=== PATIENT | female | born 1965 | race Caucasian/White ===

== ENCOUNTER 2022-07-02 02:24 | Observation (INO) | payer OTHER, SELFPAY ==
[2022-07-02] VITALS (16 sets, daily range): BP systolic 83–143; BP diastolic 57–94; PULSE 67–106; RESP 10–23; TEMP 36.5–36.9; O2SAT 91–100
--- NOTE | ~2022-07-02 | CT_ITS ---
EXAMINATION: CT abdomen pelvis w con DATE: 07/02/2022 06:28 INDICATION: Right flank pain. TECHNIQUE: Computed tomography (CT) of the abdomen and pelvis was performed with 100 mL Omnipaque 350 intravenous contrast. Automated exposure control and iterative reconstruction technique were employe d. The dose-length product was 365.59 mGy-cm. COMPARISON: None. FINDINGS: The visualized portions of the lung bases demonstrate mild atelectasis. No pleural effusion . The heart size is normal. No pericardial effusion. The liver demonstrates focal steatosis adjacent to ligamentum teres. There is a 6 mm cyst in the liver. The gallbladder is normal in size and contain s a gallstone. The spleen, pancreas, adrenal glands, and left kidney are normal. There are cysts in r ight kidney measuring up to 3.1 cm. There is a 3 mm stone in right kidney. There is mild right hydron ephrosis and hydroureter. There is a 5 mm stone in distal right ureter. There is a 2.1 cm subserosal uterine fibroid. There is diverticulosis of the colon without evidence of diverticulitis. The appendi x is normal. There are no dilated loops of bowel. There are no pathologically enlarged lymph nodes. T here is no free intraperitoneal fluid. There is an umbilical hernia containing fat. There is moderate lumbar spondylosis. IMPRESSION: 1. 5 mm stone in distal right ureter with mild right hydronephrosis and hydroureter. 2. 3 mm nonobstructing right kidney stone. Reviewed, dictated and finalized at [facility] IMPRESSION: 1. 5 mm stone in distal right ureter with mild right hydronephrosis and hydrour eter. 2. 3 mm nonobstructing right kidney stone.
--- NOTE | ~2022-07-02 | XR_ITS ---
XR fluoroscopy no charge DATE: 07/02/2022 12:57 INDICATION: Right ureteral stone extraction TECHNIQUE: Multiple spot C-arm images during right retrograde pyelogram procedure 10.8 seconds fluoroscopy time [id number] [id number] COMPARISON: 07/02/2022 CT abdomen pelvis FINDINGS: A cystoscope is noted with guidewire placed up to the L5 level in the right ureter. There i s moderate right hydroureteronephrosis with blunting of the calyces throughout the right kidney. IMPRESSION: Moderate right hydroureteronephrosis Please refer to urology procedure report Reviewed, dictated and finalized at [facility] Reviewed, dictated and finalized at [facility]. [employer]
--- NOTE | 2022-07-02 03:01 | ED.ABDPAIN ---
HPI - Abdominal Pain General Chief Complaint: Abdominal Pain Stated Complaint: Abd pain, LRQ to back Time Seen by Provider: 07/02/22 02:33 History of Present Illness HPI narrative: This is a 57-year-old female with past medical history of kidney stones, presenting the emergency department complaining of severe abdominal pain for the past day. She describes the pain as dull and cramping, severe, radiating towards the pelvis. This is associated with nausea and vomiting. She states she has felt the pain like this before and found to have kidney stones Related Data Home Medications Medication Instructions Recorded Confirmed albuterol sulfate 90 mcg/actuation 1 puff inhalation QID PRN Wheezing 08/28/19 08/28/19 aerosol inhaler cetirizine 10 mg capsule 10 mg PO DAILY 08/28/19 08/28/19 famotidine 20 mg tablet 20 mg PO DAILY 08/28/19 08/28/19 thyroid (pork) 48.75 mg tablet 48.75 mg PO DAILY 08/28/19 08/28/19 (Nature-Throid) venlafaxine 75 mg tablet 75 mg PO BID 08/28/19 08/28/19 Allergies Allergy/AdvReac Type Severity Reaction Status Date / Time No Known Allergies Allergy Verified 08/28/19 16:14 Review of Systems Review of Systems: CONSTITUTIONAL: Denies fever, chills, or sweats. EYES: Denies visual changes, redness, or discharge. ENT: Denies rhinorrhea, congestion, sore throat, or otalgia. CARDIOVASCULAR: Denies chest pain, palpitations, or edema. RESPIRATORY: Denies cough or dyspnea. GASTROINTESTINAL: Abdominal pain, nausea, vomiting denies diarrhea. GENITOURINARY: Denies dysuria or hematuria. SKIN: Denies rash or itching. MUSCULOSKELETAL: Denies back pain, joint pain, or myalgia. NEUROLOGIC: Denies headache, numbness, dizziness, or weakness. PSYCHIATRIC: Denies anxiety or depression. FORMERLY [facility], 1928–1983 Past Medical History Medical History (Updated 07/02/22 @ 08:02 by Demar Bartholomew MD) Gestational diabetes Rema's disease Medullary sponge kidney Surgical History Surgical History H/O lateral meniscus repair of left knee Social History Social History Smoking status: Never smoker Alcohol intake: current Alcohol use details: Socially Substance use: never Gender identity (if verbalized by the patient): Female Exam Narrative: GENERAL: Well-developed, well-nourished, appears diaphoretic, in moderate distress due to pain HEAD: Normocephalic, atraumatic. EYES: PERRLA and EOMI. ENT: Nares clear, no rhinorrhea or epistaxis. Mucous membranes moist. Oropharynx without tonsillar hypertrophy exudate or other lesions. NECK: Supple. No adenopathy or masses. No carotid bruits or JVD CHEST: Clear to auscultation. No respiratory distress. No wheezes rales or rhonchi HEART: Regular rate and rhythm. No murmur heard. Normal peripheral pulses. ABDOMEN: Soft, diffusely tender to palpation, greater in the right lower quadrant and suprapubic region, nondistended, normal active bowel sounds. Right CVA tenderness to palpation EXTREMITIES: Normal range of motion. No edema. SKIN: Warm, dry, no rash. NEURO: No focal deficits. Alert and oriented x3. PSYCH: Normal mood and affect. Course Course Emergency Course: 07:10 - CT shows a right-sided 5 mm stone with hydronephrosis. Patient has been unable to provide a urine sample and states her pain is some not controlled. Will discuss patient with urology and hospitalist and admit for pain control. 07:50 - UA not concerning for UTI. Paged urology with out answer. Discussed patient with hospitalist, Dr. Lazar who accepts admission for pain control 08:45 - Discussed patient with urology team who will evaluate the patient. Vital Signs Vital signs: Vital Signs Temperature 98.1 F 07/02/22 03:04 Pulse Rate 69 07/02/22 03:04 Respiratory Rate 18 07/02/22 03:04 Blood Pressure 142/77 H 07/02/22 03:04 Pulse Oximetry 99 07/02/22 03:04 Oxygen Delivery R
[2022-07-02] MEDS: PROCHLORPERAZINE EDISYLATE 10 MG/2 ML VIAL IV PUSH (03:38)
[2022-07-02] MEDS: MORPHINE SULFATE (*CRX) 4 MG/ML INJ IV PUSH (03:38)
[2022-07-02] MEDS: SODIUM CHLORIDE 0.9% IV 1,000 ML 999 ML IV CONT ×2 (03:39→09:27)
[2022-07-02 03:44] LABS: Basophils Percent Auto 0.3 % (0.2-1.2); Eosinophils Percent Auto 0.3 % (0-4.4); Hematocrit 39.8 % (37.0-47.0); Hemoglobin 13.6 g/dL (12.0-15.0); Immature Granulocyte Absolute 0.06 K/mm3 (0.00-0.031); Immature Granulocyte Percent A 0.5 % (0-0.5); Lymphocytes Absolute Auto 1.33 K/mm3 (0.9-3.2); Lymphocytes Percent Auto 11.1 % (18.3-44.2); Mean Corpuscular HGB Conc 34.2 g/dl (32-36); Mean Corpuscular Hemoglobin 29.8 pg (26-34); Mean Corpuscular Volume 87.3 fl (80-100); Mean Platelet Volume 11.1 fl (7.4-10.4); Monocytes Absolute Auto 0.6 K/mm3 (0.1-0.6); Monocytes Percent Auto 4.9 % (2.6-8.5); Neutrophils Absolute Auto 9.9 K/mm3 (1.3-6.7); Neutrophils Percent Auto 82.9 % (45.5-73.1); Platelet Count Result 226 k/mm3 (150-375); Red Blood Count 4.56 M/mm3 (4.2-5.4); Red Cell Distribution Width 11.9 % (11.5-14.5)
[2022-07-02 03:56] LABS: Lactic Acid Reflex 2.7 mmol/L (0.7-2.0)
[2022-07-02 03:56] LABS: Lipase 189 U/L (23-300)
[2022-07-02 05:06] LABS: Alanine Aminotransferase 21 U/L (6-35); Albumin Level 4.3 g/dL (3.5-5.1); Alkaline Phosphatase 91 U/L (38-126); Anion Gap 11 mmol/L (8-16); Aspartate Amino Transferase 27 U/L (14-36); Bilirubin,Total 0.3 mg/dL (0.2-1.3); Blood Urea Nitrogen 11 mg/dL (7-17); Calcium 8.6 mg/dL (8.4-10.2); Carbon Dioxide 24 mmol/L (22-30); Chloride 105 mmol/L (98-107); Estimated CRCL calculation 127 ml/min; Estimated Glomerular Filt Rate > 60; Glucose 194 mg/dL (65-110); Potassium 3.7 mmol/L (3.4-5.0); Sodium 140 mmol/L (137-145)
[2022-07-02 06:39] LABS: Reflex Lactic Acid Yes or No Add Lactic
[2022-07-02 07:14] LABS: Add Urine Microscopic? YES; Appearance Urine Cloudy (Clear); Bilirubin Urine 1+ (Negative); Blood Urine 3+ (Negative); Color Urine Brown (Yellow); Glucose Urine UA Trace mg/dL (Negative); Ketones Urine Negative (Negative); Leukocyte Esterase Ur Negative LEU/UL (Negative); Nitrate Urine Negative (Negative); Protein Urine Trace mg/dL (Negative); Specific Grav Ur >= 1.030 (1.001-1.035); Urobilinogen Urine 0.2 mg/dL (<2.0); pH Urine 5.5 (5.0-9.0)
[2022-07-02 07:29] LABS: Amorphous Sediment Urine Moderate; Calcium Oxalate Crystals Urine Present /hpf; Mucus Urine Heavy /lpf; RBC Urine >75 /hpf (0-2); Squamous Epithelial Cell Urine Rare /hpf (Few); WBC Urine 21-30 /hpf
[2022-07-02 07:34] LABS: Lactic Acid 3.1 mmol/L (0.7-2.0)
[2022-07-02] MEDS: HYDROmorphone HCL INJ (*CRX) 1 MG/ML SYR IM (09:26)
[2022-07-02] MEDS: KETOROLAC 30 MG/ML VIAL (*BKC) IV PUSH (09:27)
[2022-07-02] MEDS: TAMSULOSIN HCL 0.4 MG CAPSULE PO (09:32)
--- NOTE | 2022-07-02 09:45 | ADMGEN ---
This patient, Opal Ngo, was admitted to Medical Room 261-01. Patient/family oriented to hospital policies and general routines including ID bracelet, bed and alarms, visiting hours, pain management, procedures, bathroom and other care routines, personal items, smoking policy, room service/diet, and visiting hours. Information on how to activate the Rapid Response Team has been discussed. Patient/Family are encouraged to report perceived risks to care and to ask questions if they do not understand what they are told or what they should do.
--- NOTE | 2022-07-02 11:14 | WPDANESEPPF ---
Anes - Initial Pre Proc Eval Procedure: Operation Date: 07/02/22 15:00 Proposed Procedures p Cystoscopy, Right Retrograde Pyelogram, Possible Stone Extraction, Possible Stent Placement; Possible Holmium Laser(Right) - Garrett Marx MD Date/Time: 07/02/22 11:14 Surgeon: Dianne Ramos PA-C Pre Op Diagnosis: Nephrolithiasis Patient Data Age: 57 Gender: F Height: 1.65 m Weight: 143 kg Last Vital Signs Temp 36.6 C 07/02/22 09:53 Pulse 73 07/02/22 09:53 Resp 14 07/02/22 09:53 BP 118/64 07/02/22 09:53 Pulse Ox 95 07/02/22 09:53 O2 Del Method Room Air 07/02/22 03:16 Allergies Allergy/AdvReac Type Severity Reaction Status Date / Time acetaminophen [From Tylenol] Allergy Other Verified 07/02/22 10:11 Home Medications Medication Instructions Recorded Confirmed Type albuterol sulfate 90 mcg/actuation 1 puff inhalation QID PRN Wheezing 08/28/19 07/02/22 History aerosol inhaler cetirizine 10 mg capsule 10 mg PO DAILY 08/28/19 07/02/22 History famotidine 20 mg tablet 20 mg PO DAILY 08/28/19 07/02/22 History azelastine 137 mcg (0.1 %) nasal 2 spray intranasal BID PRN Allergy 07/02/22 07/02/22 History spray aerosol Symptoms chlorpheniramine 4 1 tablet PO DAILY 07/02/22 07/02/22 History mg-phenylephrine 10 mg tablet (Cold and Allergy) ergocalciferol (vitamin D2) 1,250 1,250 mcg PO WEEKLY 07/02/22 07/02/22 History mcg (50,000 unit) capsule montelukast 10 mg tablet 10 mg PO DAILY 07/02/22 07/02/22 History thyroid (pork) 60 mg tablet 60 mg PO DAILY 07/02/22 07/02/22 History (Transfer Thyroid) Laboratory Tests 07/02/22 07/02/22 07/02/22 03:25 03:25 03:26 WBC 12.0 K/mm3 H K/mm3 (4.5-10.0) RBC 4.56 M/mm3 M/mm3 (4.2-5.4) Hgb 13.6 g/dL g/dL (12.0-15.0) Hct 39.8 % % (37.0-47.0) MCV 87.3 fl fl (80-100) MCH 29.8 pg pg (26-34) MCHC 34.2 g/dl g/dl (32-36) RDW 11.9 % % (11.5-14.5) Plt Count 226 k/mm3 k/mm3 (150-375) MPV 11.1 fl H fl (7.4-10.4) Immature Gran % (Auto) 0.5 % % (0-0.5) Neut % (Auto) 82.9 % H % (45.5-73.1) Lymph % (Auto) 11.1 % L % (18.3-44.2) [place] % (Auto) 4.9 % % (2.6-8.5) Eos % (Auto) 0.3 % % (0-4.4) Baso % (Auto) 0.3 % % (0.2-1.2) Lymph # (Auto) 1.33 K/mm3 K/mm3 (0.9-3.2) [place] # (Auto) 0.6 K/mm3 K/mm3 (0.1-0.6) Eos # (Auto) 0.0 K/mm3 K/mm3 (0-0.3) Baso # (Auto) 0.0 K/mm3 K/mm3 (0.0-0.1) Abs Immat Gran (auto) 0.06 K/mm3 H K/mm3 (0.00-0.031) Absolute Neuts (auto) 9.9 K/mm3 H K/mm3 (1.3-6.7) Absolute Nucleated RBC 0.0 K/mm3 K/mm3 (0.0-0.012) Nucleated RBC % 0.0 % % (0.0-0.2) Sodium Cancelled Potassium Cancelled Chloride Cancelled Carbon Dioxide Cancelled Anion Gap Cancelled BUN Cancelled Creatinine Cancelled Estim Creat Clear Calc Cancelled Estimated GFR Cancelled Glucose Cancelled Lactic Acid 2.7 mmol/L H mmol/L (0.7-2.0) Calcium Cancelled Total Bilirubin Cancelled AST Cancelled ALT Cancelled Alkaline Phosphatase Cancelled Total Protein Cancelled Albumin Cancelled Lipase Cancelled Urine Color Urine Appearance Urine pH Ur Specific [place] Urine Protein Urine Glucose (UA) Urine Ketones Ur Blood (Man) Urine Nitrate Urine Bilirubin Urine Urobilinogen Leukocyte Esterase Rfl Urine RBC Urine WBC Ur Squamous Epith Cells Calcium Oxalate Crystal Amorphous Sedimen
--- NOTE | 2022-07-02 11:25 | WPDURCON ---
Assessment and Plan Assessment and plan (1) Nephrolithiasis: Code(s): N20.0 - Calculus of kidney Status: Acute Assessment and Plan: Plan to go to the OR with Dr. Marx: Cystoscopy, right ureteroscopy with stone extraction, right stent placement, right retrograde pyelogram, possible holmium laser. Keep NPO. Urology Consult Note HPI Date Seen: 07/02/22 Time Seen: 11:25 Requesting Physician: Dianne Ramos PA-C Primary Care Provider: UNKNOWN,DOCTOR Consult Narrative Reason for consult: Right Ureteral Stone Narrative: Opal Ngo is a 57 year old female who presented to the ER this morning for acute onset of low back pain that radiates to the RLQ accompanied by nausea and vomiting. She denies dysuria, hematuria, frequency or urgency to urinate. She had a CT scan in the ER which shows a 5mm right distal ureteral stone with mild right hydronephrosis, with a 3mm non obstructive right kidney stone. UA is not suggestive of a UTI, urine culture is pending. Creatinine is 0.60, WBC 12.0 and she is afebrile. She has a history of kidney stones but passed them spontaneously in the past. She has never seen a urologist or had surgery for her stones in the past. Review of Systems Cardiovascular: Cardiovascular: Denies chest pain Respiratory: Respiratory: Reports no additional respiratory complaints Gastrointestinal: Gastrointestinal: Reports abdominal pain, Reports nausea and Reports vomiting Genitourinary: Genitourinary: Denies hematuria, Denies nocturia, Denies dysuria, Denies pelvic pain, Denies flank pain, Denies urinary incontinence, Denies urinary hesitancy and Denies urinary urgency [facility] Past Medical History Medical History Asthma Fibromyalgia GERD (gastroesophageal reflux disease) Gestational diabetes Rema's disease Medullary sponge kidney Ulcer Surgical History Surgical History H/O lateral meniscus repair of left knee Social History Social History Smoking status: Never smoker Alcohol intake: current Alcohol use details: Socially Substance use: never Lack of Transportation: No Lack of Food: Never True Current Housing: I Have Housing Concerned About Future Housing: No Difficulty Paying Gas/Electric Bills: No Difficulty Paying for Meds: No Currently Unemployed: No Education: Associate Degree Difficulty w/ Childcare or Family Care: No Gender identity (if verbalized by the patient): Female Spiritual care concerns: No Meds Home Medications and Allergies Home Medications Medication Instructions Recorded Confirmed Type albuterol sulfate 90 mcg/actuation 1 puff inhalation QID PRN Wheezing 08/28/19 07/02/22 History aerosol inhaler cetirizine 10 mg capsule 10 mg PO DAILY 08/28/19 07/02/22 History famotidine 20 mg tablet 20 mg PO DAILY 08/28/19 07/02/22 History azelastine 137 mcg (0.1 %) nasal 2 spray intranasal BID PRN Allergy 07/02/22 07/02/22 History spray aerosol Symptoms chlorpheniramine 4 1 tablet PO DAILY 07/02/22 07/02/22 History mg-phenylephrine 10 mg tablet (Cold and Allergy) ergocalciferol (vitamin D2) 1,250 1,250 mcg PO WEEKLY 07/02/22 07/02/22 History mcg (50,000 unit) capsule montelukast 10 mg tablet 10 mg PO DAILY 07/02/22 07/02/22 History thyroid (pork) 60 mg tablet 60 mg PO DAILY 07/02/22 07/02/22 History ([place] Thyroid) Allergies Allergy/AdvReac Type Severity Reaction Status Date / Time acetaminophen [From Tylenol] Allergy Blister Verified 07/02/22 11:26 Vital Signs Vital Signs - 24 hr 07/02/22 03:04 07/02/22 03:16 07/02/22 09:35 Temperature 98.1 F 98.1 F Pulse Rate 69 78 Respiratory Rate 18 16 Blood Pressure 142/77 H 142/77 H Pulse Oximetry 99 99 Oxygen Delivery Room Air Room Air 07/02/22 09:53 Temperature 97.9 F
[2022-07-02] MEDS: LACTATED RINGERS 1,000 ML 30 ML IV CONT (11:44)
--- NOTE | 2022-07-02 12:12 | WPDHPUPDATE1 ---
History and Physical Update Update Date/Time: 07/02/22 12:12 History and Physical has been reviewed, including an updated exam of the patient. There are NO changes in the patient's condition. Risks, benefits, and alternatives have been discussed and questions answered. Patient agrees to proceed with procedure. Imaging reviewed and discussed with Valencia Smith NP. Agree with plans for cystoscopy with right ureteroscopy, right ureteral stone extraction with possible laser lithotripsy, retrograde pyelography and stent placement
[2022-07-02] MEDS: ceFAZolin 2 GM/D5W 50 ML 2 GM/50 ML BAG IVPB (12:27)
--- NOTE | 2022-07-02 13:04 | W.PM.PROC2 ---
Procedure Note - Detailed Date of Procedure 07/02/22 Pre-op Diagnosis Right ureteral stone Post-op Diagnosis Same Procedure Performed Cystoscopy, right ureteroscopy with stone extraction Surgeon Garrett Marx MD Anesthesia General Description of Procedure The patient was brought to the operative suite where she is prepped and draped in a routine sterile fashion while in the dorsal lithotomy position after the uneventful induction of a general LMA anesthetic. A 19F rigid cystoscope was placed in the bladder. The patient had no evidence of urethral stricture or bladder neck contracture. The bladder mucosa was endoscopically normal without hyperemia or neoplasm. There was a single, orthotopic ureteral orifice bilaterally. A 0.035 glidewire was advanced into the right renal pelvis under fluoroscopy. The distal ureter was dilated with an 8F/10F ureteral dilator. Ureteroscopy was undertaken with a short, tapered, semi-rigid ureteroscope and the stone was extracted with ease using a 1.9F Escape disposable stone basket. Due to the ease of this manipulation I opted not to place a ureteral stent. The patient's bladder was emptied and was taken to the recovery room having tolerated this procedure well. Drains No Packing No Pathology Yes Complications No immediate complications Condition Stable
[2022-07-02] MEDS: fentaNYL CITRATE INJ (*CRX) 100 MCG/2 ML VIAL 25 MCG IV PUSH (13:39)
--- NOTE | 2022-07-02 14:05 | SUR.PHASEI ---
REPORT GIVEN TO FLOOR RN.
[2022-07-02] MEDS: HYDROmorphone HCL INJ (*CRX) 1 MG/ML SYR 0.5 MG IV PUSH (15:09)
[2022-07-02] MEDS: ONDANSETRON INJ 4 MG/2 ML VIAL IV PUSH (15:09)
--- NOTE | 2022-07-02 15:26 | PC.NURSE ---
Patient to OR at 1100 07/02/22.
[2022-07-02 15:27] LABS: Lactic Acid Reflex 2.7 mmol/L (0.7-2.0)
--- NOTE | 2022-07-02 15:32 | PM.IMHP ---
H&P: HPI History of Present Illness Date/Time: 07/02/22 15:32 Chief Complaint: Right flank pain Narrative: Date of service: 07/02/2022 Opal Duran is a 57-year-old female with a history of asthma, fibromyalgia, hypothyroidism, sponge kidney, GERD, and kidney stone 10 years ago which passed without intervention who presented to the emergency department on 07/02/2022 after she developed sudden onset of right flank pain Which she described as an intermittent stabbing sensation. Last night around 11:00 p.m., she noticed some left back pain that migrated to the right flank and around to the right lower quadrant. This was associated with dry heaves. Patient states that she had urinary hesitancy and could only urinate a few drops. She denied any dysuria or hematuria. upon presentation to the emergency department, her vital signs were stable, she was afebrile, white blood cell count was 12.0, lactic acid 2.7, UA was abnormal with brown cloudy urine with 3+ blood, and CT of the abdomen/pelvis showed 5 mm stone in the distal right ureter with mild right hydronephrosis and hydroureter as well as 3 mm nonobstructing right kidney stone. upon my initial evaluation of the patient, she has undergone cystoscopy with right ureteroscopy and stone extraction. She tolerated the procedure well. She does complain of diffuse abdominal discomfort radiating to the back. Describes this as a cramping sensation. She was able to urinate and had a full stream, she did have some mild discomfort and states her urine was light pink blood-tinged. She endorses persistent nausea but no episodes of emesis. She has had a few sips of water and has been able to keep this down. She has not eaten anything yet. She is being admitted to the hospitalist service for observation. Supervising physician for this history and physical is Dr. Viridiana Lazar Review of Systems Review of Systems: All systems reviewed & are unremarkable except as noted in HPI and below PMFSH Past Medical History Medical History (Updated 07/02/22 @ 15:46 by Dianne Ramos PA-C) Asthma Fibromyalgia GERD (gastroesophageal reflux disease) Gestational diabetes Rema's disease Kidney stone Medullary sponge kidney Ulcer Surgical History Surgical History H/O lateral meniscus repair of left knee Social History Social History (Updated 07/02/22 @ 15:48 by Dianne Ramos PAIlan) Social History: PCP: Rosemarie Peres NP POA: Wan Ngo () Code: full Years smoked: 5 Smoking status: Former smoker Alcohol intake: current Alcohol use details: 1-2 glasses of wine 1-2x/week Substance use: never Lack of Transportation: No Lack of Food: Never True Current Housing: I Have Housing Concerned About Future Housing: No Difficulty Paying Gas/Electric Bills: No Difficulty Paying for Meds: No Currently Unemployed: No Education: Associate Degree Difficulty w/ Childcare or Family Care: No Living arrangements: with family Gender identity (if verbalized by the patient): Female Spiritual care concerns: No Meds Home Medications and Allergies Home Medications Medication Instructions Recorded Confirmed Type albuterol sulfate 90 mcg/actuation 1 puff inhalation QID PRN Wheezing 08/28/19 07/02/22 History aerosol inhaler cetirizine 10 mg capsule 10 mg PO DAILY 08/28/19 07/02/22 History famotidine 20 mg tablet 20 mg PO DAILY 08/28/19 07/02/22 History azelastine 137 mcg (0.1 %) nasal 2 spray intranasal BID PRN Allergy 07/02/22 07/02/22 History spray aerosol Symptoms chlorpheniramine 4 1 tablet PO DAILY 07/02/22 07/02/22 History mg-phenylephrine 10 mg tablet (Cold and Allergy) ergocalciferol (vitamin D2) 1,250 1,250 mcg PO WEEKLY 07/02/22 07/02/22 History mcg (50,000 unit) capsule montelukast 10 mg tablet 10 mg PO DAILY 07/02/22 07/02/22 History thyroid (pork) 60 mg tablet 60 m
[2022-07-02] MEDS: HYOSCYAMINE SULFATE 0.125 MG TABLET PO (16:26)
[2022-07-02] MEDS: SODIUM CHLORIDE 0.9% IV 1,000 ML 70 ML IV CONT (16:28)
[2022-07-02] MEDS: traMADol HCL (*CRX) 25 MG TABLET PO (21:23)
[2022-07-03 00:28] VITALS: BP 105/64; PULSE 78; RESP 18; TEMP 36.3; O2SAT 96
[2022-07-03] MEDS: traMADol HCL (*CRX) 25 MG TABLET PO (02:55)
[2022-07-03 05:21] VITALS: BP 106/69; PULSE 76; RESP 18; TEMP 36.2; O2SAT 96
[2022-07-03] MEDS: SODIUM CHLORIDE 0.9% IV 1,000 ML 70 ML IV CONT (05:21)
[2022-07-03 05:51] LABS: Anion Gap 3 mmol/L (8-16); Blood Urea Nitrogen 10 mg/dL (7-17); Calcium 8.1 mg/dL (8.4-10.2); Carbon Dioxide 25 mmol/L (22-30); Chloride 110 mmol/L (98-107); Estimated CRCL calculation 79 ml/min; Estimated Glomerular Filt Rate > 60; Glucose 110 mg/dL (65-110); Potassium 3.7 mmol/L (3.4-5.0); Sodium 138 mmol/L (137-145)
[2022-07-03 05:57] LABS: Basophils Percent Auto 0.3 % (0.2-1.2); Eosinophils Percent Auto 0.2 % (0-4.4); Hematocrit 33.1 % (37.0-47.0); Hemoglobin 11.1 g/dL (12.0-15.0); Immature Granulocyte Absolute 0.04 K/mm3 (0.00-0.031); Immature Granulocyte Percent A 0.4 % (0-0.5); Lymphocytes Absolute Auto 1.58 K/mm3 (0.9-3.2); Lymphocytes Percent Auto 14.8 % (18.3-44.2); Mean Corpuscular HGB Conc 33.5 g/dl (32-36); Mean Corpuscular Hemoglobin 29.4 pg (26-34); Mean Corpuscular Volume 87.8 fl (80-100); Mean Platelet Volume 11.2 fl (7.4-10.4); Neutrophils Percent Auto 75.3 % (45.5-73.1); Platelet Count Result 195 k/mm3 (150-375); Red Blood Count 3.77 M/mm3 (4.2-5.4); Red Cell Distribution Width 12.2 % (11.5-14.5); White Blood Count 10.7 K/mm3 (4.5-10.0)
[2022-07-03 07:06] LABS: Thyroid Stimulating Hormone Reflex 0.091 uIU/mL (0.465-4.68)
--- NOTE | 2022-07-03 07:36 | PM.IMPN ---
Subjective Date/time seen: 07/03/22 07:36 Objective Data Vital Signs Vital Signs: Vital Signs - 24 hr 07/02/22 09:35 07/02/22 11:31 07/02/22 09:53 Temperature 98.5 F 97.9 F Pulse Rate 78 79 73 Respiratory Rate 16 18 14 Blood Pressure 129/62 118/64 Pulse Oximetry 97 95 Oxygen Delivery Room Air Oxygen Flow Rate 07/02/22 12:59 07/02/22 13:10 07/02/22 13:25 Temperature Pulse Rate 71 67 89 Respiratory Rate 11 L 11 L 10 L Blood Pressure 83/57 L 94/65 L 130/94 H Pulse Oximetry 100 100 100 Oxygen Delivery Simple Face Mask Simple Face Mask Simple Face Mask Oxygen Flow Rate 8 8 8 07/02/22 13:40 07/02/22 13:55 07/02/22 15:03 Temperature Pulse Rate 68 69 Respiratory Rate 23 H 10 L 16 Blood Pressure 119/77 110/76 Pulse Oximetry 100 93 Oxygen Delivery Simple Face Mask Room Air Oxygen Flow Rate 6 07/02/22 14:54 07/02/22 15:16 07/02/22 16:23 Temperature 98.3 F 98.1 F 98.1 F Pulse Rate 96 88 79 Respiratory Rate 16 12 12 Blood Pressure 136/82 130/68 123/70 Pulse Oximetry 91 94 96 Oxygen Delivery Oxygen Flow Rate 07/02/22 18:26 07/02/22 22:37 07/02/22 20:00 Temperature 98.1 F 97.7 F Pulse Rate 78 106 H Respiratory Rate 10 L 20 Blood Pressure 126/72 143/79 H Pulse Oximetry 94 99 Oxygen Delivery Room Air Oxygen Flow Rate 07/03/22 00:28 07/03/22 05:21 Temperature 97.3 F L 97.2 F L Pulse Rate 78 76 Respiratory Rate 18 18 Blood Pressure 105/64 106/69 Pulse Oximetry 96 96 Oxygen Delivery Oxygen Flow Rate Intake/Output Intake/Output: Intake & Output 06/30/22 07/01/22 07/02/22 07/03/22 23:59 23:59 23:59 23:59 Intake Total 2270 1500 Output Total 400 900 Balance 1870 600 Meds/Results Medications: Active Medications Generic Name Dose Route Start Last Admin Trade Name Freq PRN Reason Stop Dose Admin Albuterol 1 puff 07/02/22 15:52 Albuterol Sulfate (*Sp) Aerosol 1 Puff INHALATION QID PRN Wheezing Azelastine HCl 2 spray 07/02/22 15:52 Azelastine Hcl Nasal 0.1% 137 Mcg/Spr 30 Ml Btl NASAL BID PRN Allergy Symptoms Ergocalciferol 50,000 units 07/05/22 09:00 Ergocalciferol 50,000 Units Capsule PO Fr@0900 JAIME Famotidine 20 mg 07/03/22 09:00 Famotidine 20 Mg Tablet PO DAILY JAIME Hydromorphone HCl 0.5 mg 07/02/22 08:05 07/02/22 15:09 Hydromorphone Hcl Inj (*Crx) 1 Mg/Ml Syr IV PUSH 0.5 mg Q4H PRN Administration Abdominal pain Hyoscyamine 0.0625 mg 07/02/22 15:58 Hyoscyamine Sulfate 0.0625 Mg Tablet PO Q6H PRN Bladder Spasm Sodium Chloride 1,000 mls @ 70 mls/hr 07/02/22 15:55 07/03/22 05:21 Normal Saline Iv IV CONT 70 mls/hr .[id number] JAIME Administration Montelukast Sodium 10 mg 07/03/22 09:00 Montelukast Sodium 10 Mg Tablet PO DAILY JAIME Ondansetron HCl 4 mg 07/02/22 10:24 07/02/22 15:09 Ondansetron Inj 4 Mg/2 Ml Vial IV PUSH 4 mg Q6H PRN Administration Nausea And Vomiting Thyroid 60 mg 07/03/22 09:00 Thyroid 60 Mg Tablet PO DAILY [facility] Tramadol HCl 25 mg 07/02/22 15:53 07/03/22 02:55 Tramadol Hcl (*Crx) 25 Mg Tablet PO 25 mg Q6H PRN Administration Pain Rated 4-6 Radiology Results: ITS Impressions Abdomen/Pelvis CT 07/02/22 06:44 IMPRESSION: 1. 5 mm stone in distal right ureter with mild right hydronephrosis and hydroureter. 2. 3 mm nonobstructing right kidney stone. Fluoroscopy 07/02/22 13:21 IMPRESSION: Moderate right hydroureteronephrosis Please refer to urology procedure report Labs Labs: Laboratory Results - last 24 hr 07/02/22 07/02/22 07/03/22 06:56 15:08 05:28 WBC 10.7 H RBC 3.77 L Hgb 11.1 L Hct 33.1 L MCV 87.8 MCH 29.4 MCHC 33.5 RDW 12.2 Plt Count 195 MPV 11.2 H Immature Gran % (Auto) 0.4 Neut % (Auto) 75.3 H Lymph % (Auto) 14.8 L [place] % (Auto) 9.0 H Eos % (Auto) 0.2 Baso % (Auto)
[2022-07-03] MEDS: FAMOTIDINE 20 MG TABLET PO (08:25)
[2022-07-03] MEDS: MONTELUKAST SODIUM 10 MG TABLET PO (08:25)
--- NOTE | 2022-07-03 08:45 | PM.DS ---
DS: Admitting Diagnosis Discharge Date 07/03/22 0845 Admitting Diagnosis Right renal stone, hydronephrosis DS: Discharge Diagnosis Discharge Diagnosis (1) Right ureteral stone: Code(s): N20.1 - Calculus of ureter Status: Acute Assessment and Plan: Presented with right back and flank pain. CT of the abdomen/ pelvis on presentation showed 5 mm stone in the distal right ureter. She has been seen in consultation by Urology and underwent cystoscopy with right ureteroscopy and stone extraction today. She tolerated the procedure well. Supportive care including analgesics, antispasmodics, antiemetics. Urine culture is pending, however no signs/ symptoms to suggest acute infection, holding antibiotics at this time (2) Hydronephrosis: Code(s): N13.30 - Unspecified hydronephrosis Status: Acute Assessment and Plan: plan as above (3) Lactic acidosis: Code(s): E87.20 - Acidosis, unspecified Status: Acute Assessment and Plan: Mild elevation of unclear etiology. no signs/ symptoms to indicate sepsis. 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 Renal function appears stable DS: Summary Hospital Course Hospital Course: Opal Duran is a 57-year-old female with a history of asthma, fibromyalgia, hypothyroidism, sponge kidney,? GERD,? and kidney stone 10 years ago which passed without intervention who presented to the emergency department on 07/02/2022 after she developed sudden onset of right flank pain? Which she described as an intermittent stabbing sensation.? Around 11:00pm the day prior to admission, patient noticed some left back pain that migrated to the right flank and around to the right lower quadrant, accompanied with nausea and dry heaves. Upon arrival CT of the abdomen/ pelvis on presentation showed 5 mm stone in the distal right ureter. Urology was consulted and patient underwent a cystoscopy with stone extraction. Urine culture did show a possible infection. Patient was started on IV fluids, abnd was given IV antibiotics. Currently patient is stable. She is not having any discomfort and is ready for discharge at this time. Labs and vital signs are stable. She currently denies any chest pain, shortness of breath, nausea, vomiting, diarrhea, and constipation. Status at Discharge Functional status at discharge: independent ambulation Overall status at discharge: patient is progressing back to baseline Time Spent with Patient Time attestation: Total time spent providing and/or coordinating discharge services: 43 minutes Time spent: Greater than 30 minutes Specific discharge activities: Diagnostic testing, chart review, developing a treatment plan, education, care coordination documentation, physical exam, result review Exam Narrative: General: well-nourished, well-appearing 57-year-old female, sitting up in bed , comfortable, NARD Neuro: awake, alert and oriented x4, speech clear, no focal neuro deficits noted HEENMT: normocephalic, atraumatic, EOMI, sclerae anicteric Respiratory: clear to auscultation bilaterally, nonlabored breathing Cardio: regular rate, regular rhythm with S1-S2 Abdomen: nondistended, normoactive bowel sounds, soft, tender to palpation across lower abdomen : mild right flank tenderness, no CVA tenderness Extremities: no edema, erythema, or tenderness to palpation, DP pulses 2+ bilaterally Skin: no rashes or lesions, warm and dry Psych: appropriate mood and affect, judgment and insight intact DS: Data Data Completed and Pending Pending studi
[2022-07-03 09:11] LABS: Total Triiodothyronine (T3) 0.77 NG/ML (0.97-1.69)
== END 2022-07-03 10:17 | disposition home or self-care (01) ==
LOC: ANHED 08:02 → ANH2MED 08:48
PROVIDERS: Urology; Admitting Provider Family Medicine; Emergency Provider Preventive Medicine Aerospace Medicine; Visit Provider Physician Assistant
PROC: (CPT 52352; principal; 2022-07-02 15:00)
DX: N13.2 Hydronephrosis with renal and ureteral calculous obstruction (principal); E87.20 Acidosis, unspecified; E06.3 Autoimmune thyroiditis; Q61.5 Medullary cystic kidney; J45.909 Unspecified asthma, uncomplicated; M79.7 Fibromyalgia; E03.9 Hypothyroidism, unspecified; K21.9 Gastro-esophageal reflux disease without esophagitis; Z87.891 Personal history of nicotine dependence; F10.90 Alcohol use, unspecified, uncomplicated; Z87.442 Personal history of urinary calculi; Z79.51 Long term (current) use of inhaled steroids; Z79.899 Other long term (current) drug therapy
CPT/HCPCS: 52352; 36415; 74177; 80048; 80053; 81001; 82365; 83605; 83690; 84439; 84443; 84480; 85025; 87086; 88300; 96365; 96372; 96375; 99199; 99285; A9270; C1769; G0378; G0379; J0690; J0780; J1100; J1170; J1885; J2250; J2270; J2405; J2704; J3010; J7030; J7120; Q9967

== ENCOUNTER 2022-07-10 13:42 | Outpatient (CLI) | payer OTHER, SELFPAY ==
--- NOTE | ~2022-07-10 | US_ITS ---
EXAMINATION: US retroperitoneal comp DATE: 07/10/2022 14:23 INDICATION: HYDRONEPHROSIS TECHNIQUE: Multiple grayscale and Doppler ultrasound images of the retroperitoneum were obtained. COMPARISON: CT abdomen pelvis 07/02/2022 FINDINGS: The right kidney measures 10.6 x 4.9 x 4.4 cm. The left kidney measures 10.8 x 5.1 x 4.6 cm. The kidn eys demonstrate normal parenchymal echogenicity. Bilateral cortical thinning and echogenic renal pare nchyma is. 2.5 cm simple right midpole cyst. There is no hydronephrosis. The bladder is normal. IMPRESSION: Echogenic renal pyramids consistent with the given history of medullary sponge kidney. Simple right m idpole cyst. No hydronephrosis. Reviewed, dictated and finalized at location K. SHER NUMERAL IMPRESSION: Echogenic renal pyramids consistent with the given history of medullary sponge kidney. Simple right midpole cyst. No hydronephrosis.
== END 2022-07-10 13:43 | disposition home or self-care (01) ==
LOC: ANHIMG 13:43
PROVIDERS: PCP Nurse Practitioner Family; Visit Provider Urology
DX: N13.30 Unspecified hydronephrosis (principal)
CPT/HCPCS: 76770

== ENCOUNTER 2022-09-04 14:02 | Outpatient (CLI) | payer OTHER, SELFPAY ==
--- NOTE | ~2022-09-04 | US_ITS ---
EXAMINATION: US retroperitoneal comp DATE: 09/04/2022 14:41 INDICATION: HYDRONEPHROSIS TECHNIQUE: Multiple grayscale and Doppler ultrasound images of the kidneys were obtained. COMPARISON: None. FINDINGS: The right kidney measures 11.2 x 5.7 x 6.7 cm. The left kidney measures 11.2 x 6.7 x 6.4 cm. The kidn eys demonstrate normal parenchymal echogenicity and mild cortical thinning. 2.5 cm simple right midpo le cyst. There is no hydronephrosis. The bladder is normal. IMPRESSION: Mild bilateral renal cortical atrophy, otherwise normal renal sonogram findings. Reviewed, dictated and finalized at location K. ATIONS ARCHITECT IMPRESSION: Mild bilateral renal cortical atrophy, otherwise normal renal sonogram findings .
== END 2022-09-04 14:03 | disposition home or self-care (01) ==
PROVIDERS: PCP Nurse Practitioner Family; Visit Provider Urology
DX: N13.30 Unspecified hydronephrosis (principal)
CPT/HCPCS: 76770

== ENCOUNTER 2023-04-11 11:12 | Outpatient (CLI) | payer OTHER, SELFPAY ==
--- NOTE | ~2023-04-11 | XR_ITS ---
Left Knee Technique: AP and lateral views were obtained. Clinical History: Pain Findings: No fracture or dislocation is seen. Osseous alignment is anatomic. Joint spaces are preserv ed without degenerative or erosive change. Soft tissues are unremarkable. No joint effusion is seen. Impression: Unremarkable left knee radiographs. Reviewed, dictated and finalized at location . Impression: Unremarkable left knee radiographs.
--- NOTE | ~2023-04-11 | US_ITS ---
EXAMINATION: US retroperitoneal comp DATE: 04/11/2023 12:40 INDICATION: Medullary sponge kidney TECHNIQUE: Multiple grayscale and Doppler ultrasound images of the kidneys were obtained. COMPARISON: 09/04/2022 FINDINGS: The right kidney measures 11.5 x 5.4 x 6.4 cm. There is a 2.8 cm cyst of the right kidney l ower pole. The left kidney measures 10.6 x 4.8 x 6.3 cm. The kidneys demonstrate increased parenchyma l echogenicity. There is cortical thinning of the kidneys. There is no hydronephrosis. The bladder is normal. Cholelithiasis is incidentally noted. IMPRESSION: 1. Cortical thinning of the kidneys kidneys without hydronephrosis. 2. Cholelithiasis. Reviewed, dictated and finalized at location B.
== END 2023-04-11 11:13 | disposition home or self-care (01) ==
PROVIDERS: PCP Nurse Practitioner Family; Visit Provider Nurse Practitioner Family
DX: Q61.5 Medullary cystic kidney (principal); M25.561 Pain in right knee; M25.562 Pain in left knee; K80.20 Calculus of gallbladder without cholecystitis without obstruction
CPT/HCPCS: 73562; 76770

== ENCOUNTER 2024-07-15 13:52 | Outpatient (CLI) | payer BC, SELFPAY ==
--- NOTE | ~2024-07-15 | XR_ITS ---
EXAMINATION: XR abdomen/kub 1V DATE: 07/15/2024 14:51 INDICATION: Right kidney stone. TECHNIQUE: A supine view of the abdomen on 3 radiographs was obtained. COMPARISON: CT abdomen and pelvis 07/15/2024 FINDINGS: There are no dilated loops of bowel. There is a large volume of stool in the colon. IMPRESSION: 1. No visible urolithiasis. Reviewed, dictated and finalized at location A. RVISOR EXTRUSION IMPRESSION: 1. No visible urolithiasis.
--- NOTE | ~2024-07-15 | CT_ITS ---
EXAMINATION: CT abdomen pelvis wo con DATE: 07/15/2024 14:44 INDICATION: Right kidney stone. TECHNIQUE: Computed tomography (CT) of the abdomen and pelvis was performed without intravenous contr ast. Automated exposure control and iterative reconstruction technique were employed. The dose-length product was 194.33 mGy-cm. COMPARISON: CT abdomen and pelvis 07/02/2022 FINDINGS: The visualized portions of the lung bases demonstrate mild atelectasis. No pleural effusion . The heart size is normal. No pericardial effusion. The liver and spleen are normal. There are galls tones in the gallbladder which is normal in size. The pancreas and adrenal glands are normal. There i s a 3.3 cm cyst in right kidney. There is a 3 mm stone in right kidney. Left kidney is normal. There are no dilated loops of bowel. The appendix is normal. There is diverticulosis of the colon without e vidence of diverticulitis. There are no pathologically enlarged lymph nodes. There is no free intrape ritoneal fluid. There is mild thoracic spondylosis and severe lower lumbar spondylosis. IMPRESSION: 1. 3 mm nonobstructing right kidney stone. Reviewed, dictated and finalized at location A. WAY SHUNTER
== END 2024-07-15 13:53 | disposition home or self-care (01) ==
PROVIDERS: PCP Nurse Practitioner Family; Visit Provider Urology
DX: N20.0 Calculus of kidney (principal)
CPT/HCPCS: 74018; 74176